=== PATIENT | male | born 2000 | race Caucasian/White ===

== ENCOUNTER 2018-10-11 16:08 | Emergency (ER) | payer OTHER ==
[2018-10-11 16:23] VITALS: TEMP 97.9
--- NOTE | 2018-10-11 16:25 | RAD ---
PROCEDURE: Shoulder,Left 2 or More Views Clinical History: possible dislocation Comparison: Same as above . Technique: Two views of the left shoulder were done. Findings: There is anterior subcoracoid dislocation of the left humeral head. The orthopedic hardware in the region of the left clavicle is intact. The visualized left-sided ribs, left clavicle and the left scapular do not show any acute bony trauma Impression: There is anterior subcoracoid dislocation of the left humeral head. . Electronically signed by: Jose Francisco Calix MD 10/11/2018 4:23 PM [facility] Workstation: [employer]-
[2018-10-11] MEDS ORDERED: ONDANSETRON INJ 4 MG/2 ML VIAL ONE (16:53)
[2018-10-11] MEDS ORDERED: fentaNYL CITRATE INJ 50 MCG/ML AMP ONE (16:53)
[2018-10-11] MEDS ORDERED: PROPOFOL 200 MG/20 ML VIAL IV ONE (16:54)
[2018-10-11] MEDS: ONDANSETRON INJ 4 MG/2 ML VIAL IV ONE (17:00)
[2018-10-11] MEDS: fentaNYL CITRATE INJ 50 MCG/ML AMP IV ONE (17:00)
[2018-10-11 17:03] VITALS: O2SAT 100
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
--- NOTE | 2018-10-11 18:25 | RAD ---
EXAM DESCRIPTION: Shoulder,Left 2 or More Views CLINICAL HISTORY: 17 years Male, POST REDUX COMPARISON: Earlier same day FINDINGS: 2 views of the left shoulder Plate and screws seen through the clavicle. Acromioclavicular joint is preserved. Interval reduction of previous noted dislocation with normal anatomical alignment of the glenohumeral joint. Fracture of the superolateral humeral head. IMPRESSION: Interval reduction of previous noted glenohumeral dislocation, now in anatomical alignment. Hill-Sachs fracture at the superolateral humeral head. Electronically signed by: Arturo Parada MD 10/11/2018 6:[address] [facility]
[2018-10-11] MEDS: HYDROCOD/APAP 7.5/325 (ER DISP) #3 TAB PO ONE (18:48)
[2018-10-11 18:55] VITALS: BP 127/58
== END 2018-10-11 18:52 | disposition home or self-care (01) ==
LOC: ER 16:08
DX: S43.005A Unspecified dislocation of left shoulder joint, initial encounter (principal); V86.59XA Driver of other special all-terrain or other off-road motor vehicle injured in nontraffic accident, initial encounter; Y92.89 Other specified places as the place of occurrence of the external cause